=== PATIENT | male | born 1995 | race Caucasian/White ===

== ENCOUNTER 2019-09-28 15:04 | Emergency (ER) | payer SELFPAY ==
[~2019-09-28] VITALS: Ht 167.6 cm; Wt 70.0 kg
--- NOTE | 2019-09-28 15:21 | PHYS DOC ---
Past Medical History Past Medical History: No Pertinent History Past Surgical History: No Surgical History Smoking Status: Current Every Day Smoker Alcohol Use: None General Adult EDM: Chief Complaint: FLANK PAIN HPI: HPI: 24-year-old male who denies any significant past medical history, presents the ED with sudden onset left flank and left mid axillary abdominal pain, described as sharp and nonradiating, onset just prior to arrival with associated nausea, vomiting and diaphoresis. States "it feels like I need to have a large poop but can't." No past surgical history or history of kidney stones. Uses meth, last use was 2 days ago. Review of systems: Denies associated chills, sore throat, cough, headache, neck stiffness, chest pain or pressure or tightness, dyspnea, hemoptysis, vomiting, diarrhea, leg swelling, rash, dysuria, hematuria, flank pain, urethral discharge, genital rash or confusion. Review of Systems: Review of Systems: Constitutional: Denies fever or chills. [] Eyes: Denies change in visual acuity. [] HENT: Denies nasal congestion or sore throat. [] Respiratory: Denies cough or shortness of breath. [] Cardiovascular: Denies chest pain or edema. [] GI: Denies bloody stools or diarrhea. [] : Denies dysuria. [] Musculoskeletal: Denies joint pain. [] Integument: Denies rash. [] Neurologic: Denies headache, focal weakness or sensory changes. [] Endocrine: Denies polyuria or polydipsia. [] Lymphatic: Denies swollen glands. [] Psychiatric: Denies depression or anxiety. [] Allergies: Allergies: Allergies Coded Allergies Type Severity Reaction Last Updated Verified No Known Drug Allergies 09/28/19 No Physical Exam: PE: Constitutional: Well developed, very uncomfortable and diaphoretic/writhing on initial exam HENT: Normocephalic, atraumatic, bilateral external ears normal, oropharynx moist, no oral exudates, nose normal. [] Eyes: EOMI, conjunctiva normal, no discharge. [] Neck: Normal range of motion, no tenderness, supple, no stridor. [] Cardiovascular:Heart rate regular rhythm, no murmur [] Lungs & Thorax: Bilateral breath sounds clear to auscultation [] Abdomen: Bowel sounds normal, soft, left mid axillary tenderness to palpation over ribs 6 through 8, no left flank pain Skin: Warm, dry, no erythema, no rash. [] Back: No tenderness, no CVA tenderness. [] Extremities: No tenderness, no cyanosis, no clubbing, ROM intact, no edema. [] Neurologic: Alert and oriented X 3, normal motor function, normal sensory function, no focal deficits noted. [] Psychologic: Affect normal, judgement normal, mood normal. [] Current Patient Data: Vital Signs: Vital Signs Date Time Temp Pulse Resp B/P (MAP) Pulse Ox O2 Delivery O2 Flow Rate FiO2 09/28/19 15:08 97.6 81 32 142/59 (86) 100 Room Air 97.6 EKG: EKG: nsr @ 74 bpm, NAD, normal intervals, no TWI, no NALINI/STDs, no visualization V1 Radiology/Procedures: Radiology/Procedures: [IMAGING REPORT Signed PATIENT: NICO SHAFFER ACCOUNT: [id number] : 1995 LOCATION: ER AGE: 24 SEX: M EXAM STATUS: REG ER ORD. PHYSICIAN: CARIDAD LUO DO REASON: left flank pain PROCEDURE: CHEST AP ONLY EXAMINATION: CHEST AP ONLY CLINICAL HISTORY: Reason: left flank pain / Spl. Instructions: / History: EXAM DATE/TIME: 09/28/2019 3:18 PM COMPARISON: None FINDINGS: Lines, tubes, and devices: None. Cardiomediastinal silhouette: Normal heart size. Lungs and pleura: Mild pulmonary hyperexpansion without evidence of focal airspace consolidation or pleural effusion. Pulmonary vasculature unremarkable. Bones and soft tissues: No acute osseous abnormality. IMPRESSION: No evidence of acute cardiopulmonary abnormality. Electronically signed by: Stan Mckeon DO (09/28/2019 3:50 PM) [id number] DICTATED and SIGNED BY: STAN MCKEON DO DATE: 09/28/19 1550 IMAGING REPORT Signed PATIENT: NICO SHAFFER ACCOUNT: [id number] : 1995 LOCATION: ER AGE: 24 SEX: M EXAM STATUS: REG ER ORD. PHYSICIAN: CARIDAD LUO DO REASON: left flank pain PROCEDURE: CT ABDOMEN PELVIS WO CONTRAST EXAMINATION: CT ABDOMEN PELVIS WO CONTRAST CLINICAL HISTORY: Reason: left flank pain / Spl. Instructions: / History: TECHNIQUE: Non-IV contrast imaging of the abdomen and pelvis was performed using standard technique, scanning from just above the dome of the diaphragm to the symphysis pubis. Unenhanced imaging is limited for the evaluation of some intra-abdominal and pelvic pathology. Contrast: IV: None CT Dose-Length Product: 314.50 mGy*cm CT Dose Reduction Employed: One or more of the following individualized dose reduction techniques were utilized for this examination: 1. Automated exposure control 2. Adjustment of the mA and/or kV according to patient size 3. Use of iterative reconstruction technique. COMPARISON: None. FINDINGS: Lower thorax: Unremarkable. Liver: Unremarkable. Biliary: The gallbladder is unremarkable. Spleen: No splenomegaly. Pancreas: Unremarkable. Adrenals: No mass. Kidneys/bladder: 6 mm calculus in the distal left ureter just proximal to the ureterovesical junction with associated mild hydroureteronephrosis. Additional nonobstructive punctate renal calculi bilaterally. No finding to suggest a cyst or mass in the unenhanced kidneys. GI Tract: No bowel dilation. Appendix is not definitively visualized, however, no secondary signs of acute appendicitis appreciated. Lymph Nodes: No lymphadenopathy. Mesentery/peritoneum: No ascites. Retroperitoneum: No mass. Vasculature: No abdominal aortic or iliac artery aneurysm. Pelvis: No mass or ascites. Minimally filled urinary bladder. Bones/Soft Tissues: No evidence of acute osseous abnormality. IMPRESSION: 6 mm distal left ureteral calculus with mild hydroureteronephrosis. Bilateral punctate nephrolithiasis. Electronically signed by: Stan Mckeon DO (09/28/2019 4:10 PM) [id number] Course & Med Decision Making: Course & Med Decision Making Pertinent Labs and Imaging studies reviewed. (See chart for details) Concern for left 6 mm ureterolithiasis with mild hydronephrosis, in a well- appearing, afebrile, no leukocytosis patient. Urinalysis with no signs of infection. Drug screen positive for amphetamines which was suspected. Urine sample was obtained after patient was given IV opioids in the ED, opiates was positive on his drug screen. I did offer admission for IV pain medication and urology consultation. Patient elected to be treated outpatient with analgesia, antiemetics and Flomax. Strict ED return precautions were given for dehydration or worsening pain. Encouraged urgent outpatient follow-up with PMD and urology (we discuss benefits for inpatient versus outpatient management with urology and patient still elected for outpatient management). Life-threatening processes were considered but are low suspicion at this time, given history and physical exam. Pt was educated on all prescription medications and adverse effects. All patient's questions were answered and pt was stable at time of discharge. Differential includes aortic dissection, cauda equina syndrome, transverse myelitis, spinal cord compression, epidural abscess or hematoma, osteomyelitis, disc herniation, surgical abdomen, stable or unstable fracture, renal colic/ urosepsis, musculoskeletal injury, traumatic injury, intraabdominal or pelvic bleeding, aortic aneurysm, acute coronary syndrome, surgical abdomen (appendicitis, cholecystitis, ischemic bowel, strangulated hernia, etc), bowel obstruction or volvulus, bladder outlet obstruction, gastrointestinal bleeding, inflammatory bowel disease, peptic ulcer disease, sepsis, diverticular disease, ureterolithiasis, nephrolithiasis, ovarian or testicular torsion, I spoken with the patient and her caregivers. I explained the patient's condition, diagnoses and treatment plan based on the information available to me at this time. I have answered the patient and her caregiver's questions and addressed any concerns. The patient and her caregivers have a good understanding of patient's diagnosis, condition and treatment plan as can be expected at this point. Vital signs have been stable. Patient's condition is stable and appropriate for discharge from the emergency department. Patient will pursue further outpatient evaluation with primary care physician or other designated or consulting physician as outlined in the discharge instructions. The patient and/or caregivers are agreeable to this plan of care and follow-up instructions have been explained in detail. The patient and/or caregivers have received these instructions in written form and have expressed an understanding of the discharge instructions. The patient and/or caregivers are aware that any significant change of condition or worsening of symptoms should prompt immediate return to this or the closest emergency department or call to 911. Dominic Disclaimer: Dominic Disclaimer: This electronic medical record was generated, in whole or in part, using a voice recognition dictation system. Departure Departure Impression: Primary Impression: Ureterolithiasis Additional Impressions: Renal colic on left side Hydronephrosis Disposition: 01 HOME, SELF-CARE Condition: STABLE Patient Instructions: Kidney Stones Additional Instructions: Dr. Bin Rodriguez [facility] [phone] Scripts Ondansetron Hcl (ZOFRAN) 4 Mg Tablet 4 TAB PO PRN Q6-8HRS for nausea, #20 TAB Prov: CARIDAD LUO DO 09/28/19 Hydrocodone/Apap 5-325 (NORCO 5-325 TABLET) 1 Each Tablet 1-2 TAB PO Q4-6HRS for pain, #20 TAB Prov: CARIDAD LUO DO 09/28/19 Tamsulosin Hcl (FLOMAX) 0.4 Mg Cap.er.24h 1 CAP PO DAILY, #14 CAP 0 Refills Prov: CARIDAD LUO DO 09/28/19 Justicifation of Admission Dx: Justifications for Admission: Justification of Admission Dx: N/A CARIDAD LUO DO Sep 28, 2019 15:21
[2019-09-28 15:26] LABS: BASO # 0.1 x10^3/uL (0.0-0.2); BASO % 1 % (0-3); EOS # 0.1 x10^3/uL (0.0-0.7); EOS % 1 % (0-3); HEMATOCRIT 48.2 % (39.0-53.0); HEMOGLOBIN 16.6 g/dL (13.0-17.5); LYMPH # 2.9 x10^3/uL (1.0-4.8); LYMPH % 32 % (24-48); MEAN CORPUSCULAR HEMOGLOBIN 30 pg (25-35); MEAN CORPUSCULAR HGB CONC 35 g/dL (31-37); MEAN CORPUSCULAR VOLUME 87 fL (79-100); MONO # 0.9 x10^3/uL (0.0-1.1); MONO % 9 % (0-9); NEUT # 5.3 x10^3/uL (1.8-7.7); NEUT % 57 % (31-73); PLATELET COUNT 319 x10^3/uL (140-400); RED BLOOD COUNT 5.56 x10^6/uL (4.30-5.70); RED CELL DISTRIBUTION WIDTH 14.1 % (11.5-14.5); WHITE BLOOD COUNT 9.2 x10^3/uL (4.0-11.0)
[2019-09-28] MEDS ORDERED: ONDANSETRON PF 4 MG/2 ML VIAL. IVP ONE (15:30)
[2019-09-28] MEDS ORDERED: HYDROmorphone 2 MG/ML VIAL IVP ONE ×2 (15:30→17:15)
[2019-09-28] MEDS ORDERED: IV NORMAL SALINE 1000ML BAG 1,000 ML IV ONE (15:30)
[2019-09-28 15:36] LABS: CALCIUM 8.9 mg/dL (8.5-10.1); CREATININE 1.1 mg/dL (0.7-1.3); GFR 82.2; POTASSIUM 4.4 mmol/L (3.5-5.1)
--- NOTE | 2019-09-28 15:52 | RAD ---
EXAMINATION: CHEST AP ONLY CLINICAL HISTORY: Reason: left flank pain / Spl. Instructions: / History: EXAM DATE/TIME: 09/28/2019 3:18 PM COMPARISON: None FINDINGS: Lines, tubes, and devices: None. Cardiomediastinal silhouette: Normal heart size. Lungs and pleura: Mild pulmonary hyperexpansion without evidence of focal airspace consolidation or pleural effusion. Pulmonary vasculature unremarkable. Bones and soft tissues: No acute osseous abnormality. IMPRESSION: No evidence of acute cardiopulmonary abnormality. Electronically signed by: Stan Whyte DO (09/28/2019 3:50 PM) [id number]
[2019-09-28 15:56] LABS: ALBUMIN 3.9 g/dL (3.4-5.0); ALBUMIN/GLOBULIN RATIO 1.2 (1.0-1.7); TOTAL BILIRUBIN 0.2 mg/dL (0.2-1.0); TOTAL PROTEIN 7.1 g/dL (6.4-8.2)
--- NOTE | 2019-09-28 16:13 | RAD ---
EXAMINATION: CT ABDOMEN PELVIS WO CONTRAST CLINICAL HISTORY: Reason: left flank pain / Spl. Instructions: / History: TECHNIQUE: Non-IV contrast imaging of the abdomen and pelvis was performed using standard technique, scanning from just above the dome of the diaphragm to the symphysis pubis. Unenhanced imaging is limited for the evaluation of some intra-abdominal and pelvic pathology. Contrast: IV: None CT Dose-Length Product: 314.50 mGy*cm CT Dose Reduction Employed: One or more of the following individualized dose reduction techniques were utilized for this examination: 1. Automated exposure control 2. Adjustment of the mA and/or kV according to patient size 3. Use of iterative reconstruction technique. COMPARISON: None. FINDINGS: Lower thorax: Unremarkable. Liver: Unremarkable. Biliary: The gallbladder is unremarkable. Spleen: No splenomegaly. Pancreas: Unremarkable. Adrenals: No mass. Kidneys/bladder: 6 mm calculus in the distal left ureter just proximal to the ureterovesical junction with associated mild hydroureteronephrosis. Additional nonobstructive punctate renal calculi bilaterally. No finding to suggest a cyst or mass in the unenhanced kidneys. GI Tract: No bowel dilation. Appendix is not definitively visualized, however, no secondary signs of acute appendicitis appreciated. Lymph Nodes: No lymphadenopathy. Mesentery/peritoneum: No ascites. Retroperitoneum: No mass. Vasculature: No abdominal aortic or iliac artery aneurysm. Pelvis: No mass or ascites. Minimally filled urinary bladder. Bones/Soft Tissues: No evidence of acute osseous abnormality. IMPRESSION: 6 mm distal left ureteral calculus with mild hydroureteronephrosis. Bilateral punctate nephrolithiasis. Electronically signed by: Stan Whyte DO (09/28/2019 4:10 PM) [id number]
[2019-09-28 17:15] VITALS: BP 144/90
[2019-09-28] MEDS ORDERED: METOCLOPRAMIDE 10 MG TABLET. PO ONE (17:15)
[2019-09-28 17:35] LABS: BILIRUBIN,URINE NEGATIVE (NEG); CLARITY,URINE CLOUDY; COLOR,URINE YELLOW; NITRITE,URINE NEGATIVE (NEG); PH,URINE 5.5 (<5.0-8.0); PROTEIN,URINE NEGATIVE (NEG-TRACE)
[2019-09-28 17:41] LABS: AMPHETAMINE/METHAMPHETAMINE POS (NEG); BARBITURATES NEG (NEG); BENZODIAZEPINES NEG (NEG); CANNABINOIDS NEG (NEG); COCAINE NEG (NEG); METHADONE NEG (NEG); OPIATES POS (NEG); PHENCYCLIDINE NEG (NEG)
[2019-09-28 17:45] LABS: BACTERIA,URINE 0 /HPF (0-FEW); RBC,URINE TNTC /HPF (0-2); SQUAMOUS EPITHELIAL CELL,UR OCC /LPF; WBC,URINE RARE /HPF (0-4)
[2019-09-28] MEDS ORDERED: ONDA4TAB7 PO (18:18)
[2019-09-28] MEDS ORDERED: HYDR-3164 PO (18:18)
[2019-09-28] MEDS ORDERED: TAMS0.4C97 PO (18:18)
--- NOTE | 2019-09-29 09:21 | EKG ---
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
== END 2019-09-28 19:00 | disposition home or self-care (01) ==
LOC: ER 15:04
DX: N13.2 Hydronephrosis with renal and ureteral calculous obstruction (principal); R11.2 Nausea with vomiting, unspecified; R10.9 Unspecified abdominal pain; F17.200 Nicotine dependence, unspecified, uncomplicated
CPT/HCPCS: 36415; 71045; 74176; 80053; 80307; 81001; 82550; 83690; 84484; 85025; 87086; 93005; 96361; 96374; 96375; 96376; 99285; J1170; J2405; J7030

== ENCOUNTER 2021-05-23 01:27 | Emergency (ER) | payer SELFPAY ==
[~2021-05-23] VITALS: Ht 165.1 cm; Wt 68.2 kg
[~2021-05-23 01:27] MED LIST: HYDR-3164 PO; ONDA4TAB7 PO; TAMS0.4C97 PO
[2021-05-23] MEDS ORDERED: AMOXICILLIN 250 MG CAPSULE. PO ONE (01:45)
[2021-05-23] MEDS ORDERED: oxyCODONE/APAP 5/325 1 TAB TABLET PO ONE (01:45)
[2021-05-23] MEDS ORDERED: IBUPROFEN 400 MG TABLET. PO ONE (01:45)
[2021-05-23] MEDS ORDERED: IBUP-1007 PO (01:56)
[2021-05-23] MEDS ORDERED: PENI500T PO (01:56)
[2021-05-23] MEDS ORDERED: OXYC1TAB15 PO (01:56)
--- NOTE | 2021-05-23 01:56 | PHYS DOC ---
Past Medical History Past Medical History: No Pertinent History Past Surgical History: No Surgical History Smoking Status: Current Every Day Smoker Alcohol Use: None Adult General Chief Complaint Chief Complaint: DENTAL PROBLEM HPI HPI 25-year-old otherwise healthy male presents for evaluation of right posterior maxillary dental discomfort with onset over the last 1 to 2 days. Tooth in question is necrotic. Has caused problems in the past but pain has not been as bad as it is tonight. No fevers, nausea or vomiting, trismus, trouble with secretions, pain or swelling to the floor of the mouth or elevation of the tongue, pain with swallowing or difficulty swallowing, change in voice, shortness of breath. Patient is alert, pleasantly and appropriately interactive and in no acute distress with appropriate vital signs upon initial evaluation here in the emergency department. No therapy for symptoms prior to arrival. Review of Systems Review of Systems A 12 point review of systems was completed and was negative except where noted in HPI above. Allergies Allergies Allergies Coded Allergies Type Severity Reaction Last Updated Verified No Known Drug Allergies 09/28/19 No Physical Exam Physical Exam 25-year-old male appearing nontoxic and in no acute distress. Head is normocephalic and atraumatic. Neck is supple and nontender. Oropharynx is moist. There is a necrotic right posterior maxillary molar without surrounding erythema or fluctuance suggestive of periapical abscess. No other oropharyngeal or posterior pharyngeal abnormality seen. Tolerating secretions normally and speaking comfortably in a normal tone of voice. Lungs are clear to auscultation at all stations. There is normal S1 and S2 without rubs or gallops and capillary refill is appropriate, less than 2 seconds globally. Abdomen is soft, nontender nondistended. Skin is warm and dry without cyanosis, clubbing or edema. Psychiatrically, the patient demonstrates appropriate mood and affect and is alert. Current Patient Data Vital Signs Vital Signs Date Time Temp Pulse Resp B/P (MAP) Pulse Ox O2 Delivery O2 Flow Rate FiO2 05/23/21 01:30 97.6 99 15 153/86 (108) 97 97.6 EKG EKG [] Radiology/Procedures Radiology/Procedures [] Course & Med Decision Making Course & Med Decision Making No red flags for dental pain today. We will treat as per flow sheet and will discharge with an antibiotic course, anti-inflammatory medication and a few stronger pain pills for breakthrough discomfort. Patient understands that he his symptoms will not get all the way better until he follows up with a dentist. Will provide dental resources. He understands that if he feels worse instead of better or develops other new symptoms of concern that he should return the emergency department immediately for reevaluation. All questions are answered. Dragon Disclaimer Shawon Disclaimer This electronic medical record was generated, in whole or in part, using a voice recognition dictation system. Departure Departure Impression: Primary Impression: Dental decay Disposition: HOME / SELF CARE / HOMELESS Condition: IMPROVED Patient Instructions: Dental Caries Additional Instructions: Follow-up very closely with a dentist of your choice in the next 1 to 2 days for a reevaluation of your symptoms and a discussion of next best steps in care. As we discussed, your symptoms will not get all the way better until you see a dentist. Begin taking the penicillin antibiotic 4 times a day as prescribed and take for the next 10 days to treat your dental issue. Take a 600 mg ibuprofen pill every 6 hours as needed for discomfort. For pain not well controlled with ibuprofen you may take a Percocet pill every 6 hours as needed. Be careful because Percocet can make you sleepy so do not drive or work or operate machinery while taking it. Return to the emergency department right away for worsening symptoms of any kind or with any other new symptoms of concern. Scripts Oxycodone/Apap 5-325 (PERCOCET 5-325 MG TABLET ) 1 Each Tablet 1 TAB PO PRN Q6HRS PRN for PAIN, #8 TAB 0 Refills Prov: MONTSE JACOBSON MD 05/23/21 Ibuprofen (IBUPROFEN) 600 Mg Tablet 600 MG PO PRN Q6HRS PRN for PAIN, #40 TAB take with food or milk Prov: MONTSE JACOBSON MD 05/23/21 Penicillin V Potassium (PENICILLIN V POTASSIUM) 500 Mg Tablet 1 TAB PO Q6H for 10 Days, #40 TAB Prov: MONTSE JACOBSON MD 05/23/21 MONTSE JACOBSON MD May 23, 2021 01:56
== END 2021-05-23 02:01 | disposition home or self-care (01) ==
LOC: ER 01:27
DX: K02.9 Dental caries, unspecified (principal); F17.200 Nicotine dependence, unspecified, uncomplicated
CPT/HCPCS: 99283